=== PATIENT | female | born 1955 | race Caucasian/White ===

== ENCOUNTER 2024-01-16 13:10 | Outpatient (OUT) | payer MEDICARE, SELFPAY ==
--- NOTE | 2024-01-16 13:13 | MM_ITS ---
Patient Name: JESSICA WONG MR#: [id number] : 1955 Exam Date: 01/16/2024 Ordering Doctor: DR LANRE BANKS . RADIOLOGY REPORT PROCEDURE: MM TOMOSYNTHESIS SCREENING BI COMPARISON: MG MAMM SCREEN 3D MAINOR CAD, 12/07/2022. MG MAMM SCREEN 3D MAINOR CAD, 10/27/2021. MG MAMM SCREEN MAINOR W CAD, 06/29/2020. MG MAMM MAINOR SCRN W CAD DIG, 09/09/2013. INDICATIONS: Screening Calculator Name NCI Breast Cancer Risk Assessment Tool 5 Year Breast Cancer Risk 1.50% Lifetime Breast Cancer Risk 5.20% Personal Breast Cancer No Personal Ovarian Cancer No Treatments None Family Cancers Mother with bladder cancer at age 72. LOCATION: [facility] BREAST COMPOSITION: There are scattered areas of fibroglandular density. FINDINGS: DIAGNOSTIC CATEGORY 2--BENIGN FINDING: RIGHT BREAST: No significant suspicious finding. No significant change has occurred. LEFT BREAST: No significant suspicious finding. Stable, chronic small lymph node within the axillary tail. No significant change has occurred. RECOMMENDATIONS: ROUTINE MAMMOGRAM AND CLINICAL EVALUATION IN 12 MONTHS. PLEASE NOTE: A NORMAL MAMMOGRAM DOES NOT EXCLUDE THE POSSIBILITY OF BREAST CANCER. A CLINICALLY SUSPICIOUS PALPABLE LUMP SHOULD BE BIOPSIED. Dictated by: Bay Milner M.D. on 01/16/2024 at 14:47 Approved by: Bay Milner M.D. on 01/16/2024 at 14:48
== END 2024-01-16 13:11 | disposition home or self-care (01) ==
LOC: MAMMO 13:10
PROVIDERS: PCP Family Medicine; Visit Provider Family Medicine
DX: Z12.31 Encounter for screening mammogram for malignant neoplasm of breast (principal); Z80.52 Family history of malignant neoplasm of bladder
CPT/HCPCS: 77063; 77067

== ENCOUNTER 2025-03-17 09:36 | Outpatient (OUT) | payer MEDICARE, SELFPAY ==
--- NOTE | 2025-03-17 09:42 | MM_ITS ---
Patient Name: JESSICA WONG MR#: [id number] : 1955 Exam Date: 03/17/2025 Ordering Doctor: DR LANRE BANKS . RADIOLOGY REPORT PROCEDURE: MM TOMOSYNTHESIS SCREENING BI COMPARISON: MM TOMOSYNTHESIS SCREENING BI, 01/16/2024. MG MAMM SCREEN 3D MAINOR CAD, 12/07/2022. MG MAMM SCREEN 3D MAINOR CAD, 10/27/2021. MG MAMM MAINOR SCRN W CAD DIG, 09/09/2013. INDICATIONS: Screening mammogram Calculator Name NCI Breast Cancer Risk Assessment Tool 5 Year Breast Cancer Risk 1.50% Lifetime Breast Cancer Risk 5.00% Personal Breast Cancer No Personal Ovarian Cancer No Treatments None Family Cancers Mother with bladder cancer at age 72. LOCATION: [facility] BREAST COMPOSITION: There are scattered areas of fibroglandular density. FINDINGS: DIAGNOSTIC CATEGORY 1--NEGATIVE. RIGHT BREAST: No significant suspicious finding. LEFT BREAST: No significant suspicious finding. RECOMMENDATIONS: ROUTINE MAMMOGRAM AND CLINICAL EVALUATION IN 12 MONTHS. PLEASE NOTE: A NORMAL MAMMOGRAM DOES NOT EXCLUDE THE POSSIBILITY OF BREAST CANCER. A CLINICALLY SUSPICIOUS PALPABLE LUMP SHOULD BE BIOPSIED. Dictated by: Farzad Noble MD on 03/17/2025 at 12:08 Approved by: Farzad Noble MD on 03/17/2025 at 12:16
--- OUTSIDE RECORDS SUMMARY | 2025-03-17 09:58 | XMS_ITS | CCD ---
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 Name Role Phone DARREN ., DR DE DIOS Admitting Unavailable DARREN ., DR DE DIOS Attending Unavailable DARREN ., DR DE DIOS Primary Care Unavailable DARREN ., DR DE DIOS Consulting Unavailable HARDEEP, DR BAY Barrientos Consulting Unavailable Aram Banks MD Primary Care Provider Aram Banks MD Unavailable [phone] Aram Banks MD Primary Care Provider [phone] Aram Banks MD Primary Care Provider ARAM BANKS Attending Unavailable ARAM BANKS Attending Unavailable Medications Current Medications Medication Drug Class(es) Dates Sig (Normalized) Sig (Original) [id number] 200 actuat albuterol 0.09 mg/actuat metered dose inhaler (15 sources) beta2-Adrenergic Agonist Start: 02-04-2025 End: 08-31-2025 take 2 puff(s) by inhalation every four hours for wheezing albuterol HFA 90 mcg/act inhaler Indications: Mild intermittent asthma with acute exacerbation (HCC) Inhale 2 puffs every 4 (four) hours if needed for wheezing 54 g 1 03/04/2025 08/31/2025 Active Start: 01-23-2024 End: 07-21-2024 take 2 puff(s) by inhalation every four hours for wheezing albuterol HFA 90 mcg/act inhaler Indications: Mild intermittent asthma with acute exacerbation (HCC) Inhale 2 puffs every 4 (four) hours if needed for wheezing 54 g 1 01/23/2024 Active 168 hr estradiol 0.17166 mg/hr transdermal system (15 sources) Estrogen Start: 05-06-2024 End: 02-03-2026 estradiol (Climara) 0.0375 MG/24HR Indications: Post menopausal syndrome Place 1 patch on the skin 1 (one) time per week 12 patch 3 03/04/2025 02/03/2026 Active Start: 04-18-2023 End: 01-01-2024 estradiol (Climara) 0.0375 M G/24HR Indications: Post menopausal syndrome Place 1 patch on the skin 1 (one) time per week 12 patch 0 10/03/2023 01/01/2024 Active levothyroxine sodium 0.075 mg oral tablet (19 sources) l-Thyroxine Start: 03-04-2025 End: 06-02-2025 take 0.5 tablet by mouth twice daily before mealtime levothyroxine (Synthroid, Levoxyl) 75 MCG tablet Indications: Postsurgical hypothyroidism Take 0.5 tablets (37.5 mcg) by mouth 2 (two) times a day before meals 90 tablet 03/04/2025 06/02/2025 Active Start: 05-24-2023 End: 05-06-2025 take 1 tablet by mouth before mealtime levothyroxine (Synthroid, Levoxyl) 112 MCG tablet Indications: Postsurgical hypothyroidism Take 1 tablet (112 mcg) by mouth in the morning. Take before meals. 90 tablet 3 05/06/2024 03/04/2025 Discontinued (Reorder) liothyronine sodium 0.005 mg oral tablet (5 sources) l-Triiodothyronine Start: 03-04-2025 liothyronine (Cytomel) 5 MCG tablet Indications: Euthyroid sick syndrome Take 1.5 tablet in AM and 1.5 tablet in PM on an empty stomach. CARLOS; Sigma or Greenstone brands only 270 tablet 03/04/2025 Active loratadine 10 mg oral tablet (17 sources) take 1 tablet by mouth once daily loratadine (Claritin) 10 MG tablet Take 10 mg by mouth 1 (one) time each day at the same time. Active rosuvastatin calcium 5 mg oral tablet (17 sources) HMG-CoA Reductase Inhibitor Start: 02-04-2025 End: 04-03-2025 take 1 tablet by mouth once daily rosuvastatin (Crestor) 5 MG tablet Indications: Mixed hyperlipidemia Take 1 tablet (5 mg) by mouth Daily 30 tablet 03/04/2025 04/03/2025 Active Start: 01-10-2024 End: 01-09-2025 take 1 tablet by mouth once daily rosuvastatin (Crestor) 5 MG tablet Indications: Mixed hyperlipidemia Take 1 tablet (5 mg) by mouth Daily 90 tablet 3 01/10/2024 Active Start: 07-10-2023 End: 10-08-2023 take 1 tablet by mouth in the morning rosuvastatin (Crestor) 5 MG tablet Indications: Mixed hyperlipidemia (CMS/HCC) Take 1 tablet (5 mg) by mouth in the morning. 90 tablet 1 07/10/2023 10/08/2023 Active Spacer/Aero-Holding Chambers (BreatheRite Mike Spacer Adult) misc (15 sources) Start: 01-10-2024 Spacer/Aero-Ho lding Chambers (BreatheRite Mike Spacer Adult) [facility] Indications: Mild intermittent asthma with acute exacerbation (HCC) 2 puffs 4 (four) times a day as needed (sob and cough) 1 each 01/10/2024 Active Start: 01-10-2024 Spacer/Aero-Ho lding Chambers (BreatheRite Mike Spacer Adult) [facility] Indications: Mild intermittent asthma with acute exacerbation (CMS/HCC) 2 puffs 4 (four) times a day as needed (sob and cough) 1 each 01/10/2024 Active Problems Active Problems Problem Classification Problem Date Documented Date Episodic/Chronic Asthma (20 sources) Mild intermittent asthma; Translations: [Mild intermittent asthma with (acute) exacerbation] Onset: 01-10-2024 01-10-2024 Chronic Complications of surgical procedures or medical care (20 sources) Postoperative hypothyroidism; Translations: [Postprocedural hypothyroidism] Onset: 02-01-2023 02-01-2023 Chronic Disorders of lipid metabolism (20 sources) Mixed hyperlipidemia; Translations: [Mixed hyperlipidemia] Onset: 02-01-2023 02-01-2023 Chronic Diverticulosis and diverticulitis (17 sources) Diverticulosis of sigmoid colon; Translations: [Diverticulosis of large intestine without perforation or abscess without bleeding] Onset: 02-01-2023 02-01-2023 Chronic Inflammation; infection of eye (except that caused by tuberculosis or sexually transmitteddisease) (17 sources) Chronic allergic conjunctivitis; Translations: [Other chronic allergic conjunctivitis] Onset: 02-01-2023 02-01-2023 Chronic Malaise and fatigue (20 sources) Chronic fatigue syndrome; Translations: [Chronic fatigue syndrome] Onset: 02-01-2023 Resolved: 02-24-2025 02-01-2023 Chronic Menopausal disorders (20 sources) Disorder associated with menstruation AND/OR menopause; Translations: [Menopausal and female climacteric states] Onset: 02-01-2023 10-03-2023 Chronic Osteoarthritis (17 sources) Degenerative joint disease involving multiple joints; Translations: [Polyosteoarthritis, unspecified] Onset: 02-01-2023 02-01-2023 Chronic Other acquired deformities (17 sources) Kyphoscoliosis deformity of spine; Translations: [Scoliosis, unspecified] Onset: 02-01-2023 02-01-2023 Chronic Other aftercare (3 sources) Patient encounter status; Translations: [Encounter for therapeutic drug level monitoring] 01-30-2025 Episodic Other nutritional; endocrine; and metabolic disorders (20 sources) Obesity caused by energy imbalance; Translations: [Other obesity due to excess calories] Onset: 02-01-2023 02-01-2023 Chronic Other screening for suspected conditions (not mental disorders or infectious disease) (11 sources) Encounter for screening mammogram for malignant neoplasm of breast; Translations: [Patient encounter status] Onset: 12-07-2022 Episodic Other upper respiratory disease (17 sources) Allergic rhinitis; Translations: [Allergic rhinitis, unspecified] Onset: 02-01-2023 02-01-2023 Chronic Residual codes; unclassified (1 source) Family history of malignant neoplasm of bladder; Translations: [FAM HX MALIGNANT NEOPLASM BLADDER] Onset: 12-12-2022 Episodic Residual codes; unclassified (2 sources) Active advance directive (copy within chart) ; Translations: [Other specified health status] 03-05-2025 Episodic Residual codes; unclassified (2 sources) Menopause present; Translations: [Asymptomatic menopausal state] 03-05-2025 Episodic Thyroid disorders (7 sources) Sick-euthyroid syndrome; Translations: [Sick-euthyroid syndrome] Onset: 03-05-2025 03-04-2025 Episodic Past or Other Problems Problem Classification Problem Date Documented Da te Episodic/Chronic Heart valve disorders (17 sources) Heart murmur; Translations: [Cardiac murmur, unspecified] Onset: 02-01-2023 02-01-2023 Episodic Mood disorders (15 sources) Mood disorders Onset: 01-03-2024 01-10-2024 Results Test Name Value Interpretation Reference Range Facility No Panel Informationon 02-19 Performed at: - [address] [id number] Ribbon Weaver: Santy Valdez PhD, Phone: [phone] [facility] Potassiumon 02-19-2025 Potassium [Moles/Vol] 4.3 mmol/L 3.5 - 5.2 mmol/L [facility] T3on 02-19-2025 T3 [Mass/Vol] 87 ng/dL 71 - 180 ng/dL [facility]care T3, freeon 02-19-2025 Free T3 [Mass/Vol] 2.4 pg/mL 2.0 - 4.4 pg/mL [facility] T3, reverseon 02-19-2025 T3.reverse [Mass/Vol] 21 ng/dL 9.2 - 24.1 ng/dL [facility] Test(s) [id number] T3, Serum was developed and its performance characteristics determined by [facility]. It has not been cleared or approved by the Food and Drug Administration. Performed at: [address] [id number] Ribbon Weaver: Jaya May MD, Phone: [phone] [facility] T4, freeon 02-19-2025 Free T4 [Mass/Vol] 1.38 ng/dL 0.82 - 1. 77 ng/dL [facility] TSHon 02-19-2025 Interpretation and review of laboratory results Abnormal [facility] TSH Qn 7.54 m[IU]/L [facility] W Auto Differential pane l (Bld)on 02-13-2025 Basophils (Bld) [#/Vol] 0.1 10*3/uL [facility] Basophils/100 WBC (Bld) 1 % Not Estab. [facility] Eosinophils (Bld) [#/Vol] 0.1 10*3/uL [facility] Eosinophils/100 WBC (Bld) 2 % Not Estab. [facility] Erythrocyte distribution width (RBC) [Ratio] 12.1 % 11.7 - 15.4 % [facility] Hematocrit (Bld) [Volume fraction] 45.3 % 34.0 - 46.6 % [facility] Hem[facility] (Bld) [Mass/Vol] 14.9 g/dL 11.1 - 15.9 g/dL [facility] Immature granulocytes (Bld) [#/Vol] 0 10*3/uL [facility] Immature granulocytes/100 WBC (Bld) 0 % Not Estab. [facility] Lymphocytes (Bld) [#/Vol] 1.5 10*3/uL [facility] Lymphocytes/100 WBC (Bld) 23 % Not Estab. [facility] MCH (RBC) [Entitic mass] 31.9 pg 26.6 - 33.0 pg [facility] MCHC (RBC) [Mass/Vol] 32.9 g/dL 31.5 - 35.7 g/dL [facility] MCV (RBC) [Entitic vol] 97 fL 79 - 97 fL [facility] Monocytes (Bld) [#/Vol] 0.6 10*3/uL [facility] Monocytes/100 WBC (Bld) 9 % Not Estab. [facility] Neutrophils (Bld) [#/Vol] 4.3 10*3/uL [facility] Neutrophils/100 WBC (Bld) 65 % Not Estab. [facility] Platelets (Bld) [#/Vol] 377 10*3/uL [facility] RBC (Bld) [#/Vol] 4.67 10*6/uL [facility] WBC (Bld) [#/Vol] 6.6 10*3/uL [facility] pane osiel 02-13-2025 Albumin [Mass/Vol] 3.9 g/dL 3.9 - 4.9 g/dL [facility] ALP [Catalytic activity/Vol] 73 U/L [facility] ALT [Catalytic activity/Vol] 19 U/L [facility] AST [Catalytic activity/Vol] 25 U/L [facility] Bilirubin [Mass/Vol] 0.5 mg/dL 0.0 - 1 .2 mg/dL [facility] Calcium [Mass/Vol] 9.4 mg/dL 8.7 - 10. 3 mg/dL [facility] Chloride [Moles/Vol] 101 mmol/L 96 - 10 6 mmol/L [facility] CO2 [Moles/Vol] 20 mmol/L 20 - 29 mmol/L [facility] Creatinine [Mass/Vol] 0.74 mg/dL 0.57 - 1.00 mg/dL [facility] GFR/1.73 sq M.predicted among non-blacks MDRD (S/P/Bld) [Vol rate/Area] 88 mL/min/{1.73_m2} 59 - PINF mL/min/1.73 [facility] Globulin (S) [Mass/Vol] 3.4 g/dL 1.5 - 4.5 g/dL [facility] Glucose [Mass/Vol] 104 mg/dL High 70 - 99 mg/dL [facility] Potassium [Moles/Vol] 5.9 mmol/L High 3.5 - 5.2 mmol/L [facility] Protein [Mass/Vol] 7.3 g/dL 6.0 - 8.5 g/dL [facility] Sodium [Moles/Vol] 137 mmol/L 134 - 144 mmol/L [facility] Urea nitrogen [Mass/Vol] 16 mg/dL 8 - 27 mg/dL [facility] Urea nitrogen/Creatinine [Mass ratio] 22 mg/mg 12 - 28 [facility] Lipid 1996 panelon Cholesterol [Mass/Vol] 278 mg/dL High 100 - 199 mg/dL [facility] Cholesterol in HDL [Mass/Vol] 112 mg/dL 39 - PINF mg/dL [facility] Cholesterol in LDL [Mass/Vol] 151 mg/dL High 0 - 99 mg/dL [facility] Cholesterol in VLDL [Mass/Vol] 15 mg/dL 5 - 40 mg/dL [facility] Triglyceride [Mass/Vol] 90 mg/dL 0 - 149 mg/dL [facility] No Panel Informationon 02-13 Interpretation and review of laboratory results Abnormal [facility] Performed at: - [address] [id number] Ribbon Weaver: Santy Valdez PhD, Phone: [phone] [facility] Spec[facility] Status Reporton Clindamycin Disk diffusion (KB) [[facility]] Comment [facility] Comment on above: [employer] CMP14 D efault [employer] CMP14 Default A hand-written panel/profile was received from your office. In accordance with the [facility] Ambiguous Test Code Policy dated February 2003, we have completed your order by using the closest currently or formerly recognized AMA panel. We have assigned Comprehensive Metabolic Panel (14), Test Code #948782 to this request. If this is not the testing you wished to receive on this specimen, please contact the [facility] Client Inquiry/Technical Services Department to clarify the test order. We appreciate your business. [employer] Default [employer] Default A hand-written panel/profile was received from your office. In accordance with the [facility] Ambiguous Test Code Policy dated February 2003, we have completed your order by using the closest currently or formerly recognized AMA panel. We have assigned Lipid Panel, Test Code #[id number] to this request. If this is not the testing you wished to receive on this specimen, please [facility] to clarify the test order. We appreciate your business. T4, freeon 02-13-2025 Free T4 [Mass/Vol] 1.5 ng/dL 0.82 - 1. 77 ng/dL [facility] TSHon 02-13-2025 TSH Qn 7.34 m[IU]/L [facility] are Free T4 [Mass/Vol]on 024 Performing Organization Information Site ID: QPT Name: [facility] Address: [address] [place], [place] [id number] Director: Kevin Marie MD [facility] No Panel Informationon 04-20 Performing Organization Information Site ID: QPT Name: [facility] Address: [address] [place] [address] Director: Kevin Marie MD [facility] T3, freeon 04-20-2024 Free T3 [Mass/Vol] 3.3 pg/mL 2.3 - 4.2 pg/mL [facility] T4, freeon 04-20-2024 Free T4 [Mass/Vol] 1.6 ng/dL 0.8 - 1.8 ng/dL [facility] TSHon 04-20-2024 TSH Qn 0.75 m[IU]/L [facility] Health are MG MAMM SCREEN 3D MAINOR CADon 12-07-2022 MG MAMM SCREEN 3D MAINOR CAD Patient: MELANIE WONG Exam Date: 12/07/2022 : 1955 Gender:F Ordering : DR ARAM BANKS . Admission #: [id number] Family : Order #: [id number] CLICK HERE TO VIEW EXAM RADIOLOGY REPORT PROCEDURE: MAMMOGRAM SCREENING 3D BILATERAL CAD COMPARISON: MG MAMM SCREEN 3D MAINOR CAD, 10/27/2021. MG MAMM SCREEN MAINOR W CAD, 06/29/2020. MG MAMM SCREEN MAINOR W CAD, 06/27/2019. DIGITIZED_MAMMO, 03/02/2009. INDICATIONS: Screening mammography Calculator Name NCI Breast Cancer Risk Assessment Tool 5 Year Breast Cancer Risk 1.50% Lifetime Breast Cancer Risk 5.40% Personal Breast Cancer No Personal Ovarian Cancer No Treatments None Family Cancers Mother with bladder cancer at age 72. LOCATION: [facility] BREAST COMPOSITION: Scattered areas fibroglandular density. FINDINGS: DIAGNOSTIC CATEGORY 2--BENIGN FINDING: RIGHT BREAST: No significant suspicious finding. No significant change has occurred. LEFT BREAST: No significant suspicious finding. Stable small lymph node within the axillary tail. No significant change has occurred. RECOMMENDATIONS: ROUTINE MAMMOGRAM AND CLINICAL EVALUATION IN 12 MONTHS. PLEASE NOTE: A NORMAL MAMMOGRAM DOES NOT EXCLUDE THE POSSIBILITY OF BREAST CANCER. A CLINICALLY SUSPICIOUS PALPABLE LUMP SHOULD BE BIOPSIED. Dictated by: Bay Milner M.D. on 12/08/2022 at 12:59 Approved by: Bay Milner M.D. on 12/08/2022 at 13:05 Normal [facility] Comprehensive Metabolic Pane osiel 10-11-2021 Albumin [Mass/Vol] 4.3 g/dL Normal 3.6-5.1 [facility] [employer] Manager Comment on above: Performed By: #### L IPD, CMP #### [facility] [address] [place], [place] [id number] Albumin/Globulin [Mass ratio] 1.4 {ratio} Normal 1.0-2.5 [facility] [employer] Manager Comment on above: Performed By: #### L IPD, CMP #### [facility] [address] [place], [place] [id number] ALP [Catalytic activity/Vol] 73 U/L Normal 35-119 [facility] [employer] Manager Comment on above: Performed By: #### L IPD, CMP #### [facility] [address] [facility] [place] [id number] ALT [Catalytic activity/Vol] 14 U/L Normal 6-33 [facility] Comment on above: Result Comment: 07/21 Female reference range changed. Performed By: #### L IPD, CMP #### [facility] [address] [facility] [place] [id number] Anion gap [Moles/Vol] 18 mmol/L Normal 12-20 [facility] Comment on above: Result Comment: Effe ctive 08/26/2019 reference range changed. Performed By: #### L IPD, CMP #### [facility] [address] [place], [place] [id number] AST [Catalytic activity/Vol] 17 U/L Normal 9-34 [facility] Comment on above: Performed By: #### L IPD, CMP #### [facility] [address] [place], [place] [id number] Bilirubin [Mass/Vol] 0.57 mg/dL Normal 0.30-1.20 [facility] Comment on above: Performed By: #### L IPD, CMP #### [facility] [address] [place], [place] [id number] BUN/CREA 26 Ratio High 6-22 [facility] Comment on above: Performed By: #### L IPD, CMP #### [facility] [address] [place], [place] [id number] Calcium [Mass/Vol] 9.5 mg/dL Normal 8.6-10.2 [facility] Comment on above: Performed By: #### L IPD, CMP #### [facility] [address] [facility] [place] [id number] Chloride [Moles/Vol] 100 mmol/L Normal 98-107 [facility] Comment on above: Performed By: #### L IPD, CMP #### [facility] [address] [facility] [place] [id number] CO2 [Moles/Vol] 24 mmol/L Normal 20-31 [facility] Comment on above: Performed By: #### L IPD, CMP #### [facility] [address] [place], [place] [id number] Creatinine [Mass/Vol] 0.6 mg/dL Normal 0.6-1.4 [facility] [employer] Manager Comment on above: Performed By: #### L IPD, CMP #### [facility] [address] [place], [place] [id number] eGFRAA 134 mL/min/1.73m2 Normal >60 [facility] [employer] Manager Comment on above: Performed By: #### L IPD, CMP #### [facility] [address] [place], [place] [id number] eGFRNAA 111 mL/min/1.73m2 Normal >60 [facility] [employer] Manager Comment on above: Performed By: #### L IPD, CMP #### [facility] [address] [place], [place] [id number] Globulin (S) [Mass/Vol] 3.0 g/dL Normal 1.9-3.7 [facility] [employer] Manager Comment on above: Performed By: #### L IPD, CMP #### [facility] [address] [place], [place] [id number] Glucose [Mass/Vol] 103 mg/dL High 65-99 [facility] [employer] Manager Comment on above: Result Comment: For FASTING Glucose --- ADA reference ranges: Normal 65-99 mg/dl Prediabetes 100-125 Diabetes >/= 126 Performed By: #### L IPD, CMP #### [facility] [address] [place], [place] [id number] Potassium [Moles/Vol] 4.9 mmol/L Normal 3.5-5.5 [facility] [employer] Manager Comment on above: Performed By: #### L IPD, CMP #### [facility] [address] [place], [place] [id number] Protein [Mass/Vol] 7.3 g/dL Normal 6.1-8.1 [facility] [employer] Manager Comment on above: Performed By: #### L IPD, CMP #### [facility] [address] [place], [place] [id number] Sodium [Moles/Vol] 137 mmol/L Normal 135-146 [facility] [employer] Manager Comment on above: Performed By: #### L IPD, CMP #### [facility] [address] [place], [place] [id number] Urea nitrogen [Mass/Vol] 14 mg/dL Normal 7-25 [facility] [employer] Manager Comment on above: Performed By: #### L IPD, CMP #### [facility] [address] [place], [place] [id number] Lipid Panelon 10-11-2021 Cholesterol [Mass/Vol] 287 mg/dL High 125-200 [facility] [employer] Manager Comment on above: Result Comment: Low risk < 200mg/dL Borderline risk 201-239 mg/dl High risk > or equal to 240 Performed By: #### L IPD, CMP #### [facility] [address] [place], [place] [id number] Cholesterol in HDL [Mass/Vol] 82 mg/dL Normal >40 [facility] [employer] Manager Comment on above: Result Comment: High Cardiovascular Risk HDL <40 mg/dL Low Cardiovascular Risk HDL > or equal to 60 mg/dl Performed By: #### L IPD, CMP #### [facility] [address] [place], [place] [id number] Cholesterol in LDL [Mass/Vol] 188 mg/dL Normal [facility] Specialist Comment on above: Result Comment: LDL ATP III CLASSIFICATION LDL less than 100 mg/dl Optimal LDL 100-129 mg/dl Near or above optimal LDL 130-159 Borderline high LDL 160-189 High LDL greater than 189 mg/dl Very High Performed By: #### L IPD, CMP #### [facility] [address] [place], [place] [id number] Cholesterol in VLDL [Mass/Vol] 17 mg/dL Normal [facility] Specialist Comment on above: Performed By: #### L IPD, CMP #### [facility] [address] [place], [place] [id number] Cholesterol.total/Ch olesterol in HDL [Mass ratio] 4 {ratio} Normal [facility] Specialist Comment on above: Performed By: #### L IPD, CMP #### [facility] [address] [place], [place] [id number] Triglyceride [Mass/Vol] 84 mg/dL Normal 30-150 [facility] [employer] Manager Comment on above: Result Comment: TRIG ATPIII CLASSIFICATIONS TRIG less than 150 mg/dl Normal TRIG 150-199 mg/dl Borderline High TRIG 200-500 mg/dl High TRIG greather than 500 mg/dl Very High Performed By: #### L IPD, CMP #### [facility] [address] [place], [place] [id number] Vital Signs Date Time Vital Sign Value Performing Clinician Radha salgado 03-11-2025 10:28-0400 Body height 157.5 cm Aram Banks MD Work Phone: [facility] 03-11-2025 10:28-0400 Body mass index (BMI) [Ratio] 33.84 kg/m2 Aram Banks MD Work Phone: [facility] 03-11-2025 10:28-0400 Body weight 83.92 kg Aram Banks MD Work Phone: [facility] 03-11-2025 10:28-0400 Diastolic blood pressure 76 mm[Hg] Aram Banks MD Work Phone: [facility] 03-11-2025 10:28-0400 Heart rate 79 /min Aram Banks MD Work Phone: [facility] 03-11-2025 10:28-0400 SaO2% (BldA) [Mass fraction] 98 % Aram Banks MD Work Phone: [facility] 03-11-2025 10:28-0400 Systolic blood pressure 126 mm[Hg] Aram Banks MD Work Phone: [facility] 03-04-2025 11:13-0400 Body height 157.5 cm Aram Banks MD Work Phone: [facility] 03-04-2025 11:13-0400 Body mass index (BMI) [Ratio] 33.84 kg/m2 Aram Banks MD Work Phone: [facility] 03-04-2025 11:13-0400 Body weight 83.92 kg Aram Banks MD Work Phone: [facility] Healthcare Encounters Encounter Date Encounter Type Care Provider Facility Start: 03-11-2025 End: 03-11-2025 Bamboo flowsheet Aram Banks MD Work Phone: [facility] Start: 03-11-2025 End: 03-11-2025 Bamboo flowssharyn Banks MD Work Phone: [facility] Start: 03-11-2025 End: 03-11-2025 Patient encounter procedure Aram Banks MD Work Phone: [facility] Comment on above: Encounter for Medica re annual wellness exam (Primary Dx); Advance directive in chart; Encounter for screening for other disorder; Screening mammogram for breast cancer; Screening for alcohol problem; Screening for osteoporosis; Menopause; History of hysterectomy; Non morbid obesity due to excess calories; Mild intermittent asthma without complication (HCC) Start: 03-11-2025 End: 03-11-2025 ambulatory ARAM BANKS Not Available Start: 03-04-2025 End: 03-04-2025 Bamboo flowssharyn Banks MD Work Phone: [facility] Start: 03-04-2025 End: 03-04-2025 Bamboo flowssharyn Banks MD Work Phone: [facility] Start: 03-04-2025 End: 03-04-2025 Office outpatient visit 40 minutes Aram Banks MD Work Phone: [facility] Comment on above: Euthyroid sick syndr ome (Primary Dx); Postsurgical hypothyroidism ; Chronic fatigue; Non morbid obesity due to excess calories; Mild intermittent asthma with acute exacerbation (HCC); Mixed hyperlipidemia ; Post menopausal syndrome Start: 03-04-2025 End: 03-04-2025 ambulatory ARAM BANKS Not Available Start: 03-03-2025 End: 03-03-2025 Refill Aram Banks MD Work Phone: [facility] Comment on above: Mixed hyperlipidemia Start: 02-14-2025 End: 02-19-2025 Orders Only Aram Banks MD Work Phone: [facility] Unsolicited Start: 02-12-2025 End: 02-13-2025 Orders Only Aram Banks MD Work Phone: [facility] Unsolicited Start: 01-31-2025 End: 02-02-2025 Refill Aram Bansk MD Work Phone: [facility] Comment on above: Mild intermittent as thma with acute exacerbation (HCC) Start: 01-30-2025 End: 02-13-2025 Telephone encounter Aram Banks MD Work Phone: [facility] Start: 07-17-2024 End: 07-22-2024 Refill Aram Banks MD Work Phone: [facility] Comment on above: Post menopausal synd [place] Start: 04-19-2024 End: 04-20-2024 External Result Encounter Aram Banks MD Work Phone: [facility] Unsolicited Start: 04-19-2024 End: 04-20-2024 External Result Encounter Aram Banks MD Work Phone: [facility] Unsolicited Start: 10-03-2023 Refill Aram de los santos MD Work Phone: [facility] Comment on above: Post menopausal synd [place] Start: 10-03-2023 Refill Aram de los santos MD Work Phone: [facility] Comment on above: Post menopausal synd [place] Start: 12-07-2022 End: 12-08-[address] ARAM BANKS . Facility: Procedures Date Procedure Procedure Detail Performing Clinician Start: 02-14-2025 Potassium serum plasma/whole blood Aram Banks MD Work Phone: Start: 02-12-2025 Complete blood count with white cell differential, automated Aram Banks MD Work Phone: Start: 02-12-2025 Comprehensive metabolic panel Aram Banks MD Work Phone: Start: 02-12-2025 Lipid panel Aram Banks MD Work Phone: Start: 02-12-2025 SPECIMEN STATUS REPORT Aram Banks MD Work Phone: Start: 04-19-2024 End: 04-19-2024 Assay of thyroid stimulating hormone tsh Aram Banks MD Work Phone: Start: 01-16-2024 Mammography Aram Banks MD Work Phone: Start: 02-01-2023 H/O: bilateral oophorectomy H/O bilateral oophorectomy Aram Banks MD Work Phone: Start: 02-01-2023 H/O: hysterectomy History of hysterectomy Aram Sauer Work Phone: Start: 12-07-2022 Mammography Aram Banks MD Work Phone: Start: 07-10-2019 Colonoscopy Aram Banks MD Work Phone: H/O: hysterectomy History of hysterectomy Aram Banks MD Work Phone: Plan of Treatment Date Care Activity Detail Author Start: 07-10-2029 Screening for malign ant neoplasm of colon [facility] Start: 03-11-2026 Medicare Annual Well ness (AWV) Medicare Annual Wellness (AWV) [facility] Start: 03-11-2026 Pneumococcal Vaccine : 65+ Years (1 of 2 - PCV) Pneumococcal Vaccine: 65+ Years (1 of 2 - PCV) [facility] Comment on above: Postponed from 07/07 (Patient Refused) Start: 06-10-2025 End: 06-10-2025 Patient encounter procedure 06/10/2025 10:00 AM EDT Office Visit [facility] [address] [place] [address] Aram Banks MD [address] [place] [address] (Fax) [facility] Start: 05-13-2025 End: 03-04-2026 T3, reverse T3, reverse Lab Routine Chronic fatigue Euthyroid sick syndrome Expected: 05/13/2025, Expires: 03/04/2026 [facility] Comment on above: Expected: 05/13/2025 , Expires: 03/04/2026 Start: 05-13-2025 End: 03-04-2026 Thyrotropin [Units/volume] in Serum or Plasma TSH Lab Routine Postsurgical hypothyroidism Chronic fatigue Expected: 05/13/2025, Expires: 03/04/2026 [facility] Comment on above: Expected: 05/13/2025 , Expires: 03/04/2026 Start: 05-13-2025 End: 03-04-2026 Thyroxine (T4) free [Mass/volume] in Serum or Plasma T4, free Lab Routine Postsurgical hypothyroidism Chronic fatigue Expected: 05/13/2025, Expires: 03/04/2026 [facility] Comment on above: Expected: 05/13/2025 , Expires: 03/04/2026 Start: 05-13-2025 End: 03-04-2026 Triiodothyronine (T3) [Mass/volume] in Serum or Plasma T3 Lab Routine Chronic fatigue Euthyroid sick syndrome Expected: 05/13/2025, Expires: 03/04/2026 [facility] Work Phone: Comment on above: Expected: 05/13/2025 , Expires: 03/04/2026 Start: 05-13-2025 End: 03-04-2026 Triiodothyronine (T3) Free [Mass/volume] in Serum or Plasma T3, free Lab Routine Chronic fatigue Euthyroid sick syndrome Expected: 05/13/2025, Expires: 03/04/2026 [facility] Comment on above: Expected: 05/13/2025 , Expires: 03/04/2026 Start: 04-21-2025 Influenza vaccination [facility] Start: 03-11-2025 End: 05-12-2026 DBT Breast - bilateral screening Bilateral screening mammogram with tomosynthesis Imaging Routine Screening mammogram for breast cancer Expected: 03/11/2025 (Approximate), Expires: 05/12/2026 [facility] Work Phone: Comment on above: Expected: 03/11/2025 (Approximate), Expires: 05/12/2026 Start: 03-11-2025 End: 03-11-2026 DXA Skeletal system Views for bone density DEXA bone density Imaging Routine Screening for osteoporosis Menopause Expected: 03/11/2025 (Approximate), Expires: 03/11/2026 [facility] Comment on above: Expected: 03/11/2025 (Approximate), Expires: 03/11/2026 Start: 03-11-2025 End: 03-11-2025 Patient encounter procedure [facility] Comment on above: Encounter for Medica re annual wellness exam; Advance directive in chart; Encounter for screening for other disorder; Screening for alcohol problem; Screening mammogram, encounter for; Screening for osteoporosis; Menopause; History of hysterectomy; H/O bilateral oophorectomy; Non morbid obesity due to excess calories Start: 03-04-2025 End: 03-04-2025 Patient encounter procedure [facility] Comment on above: Postsurgical hypothy roidism ; Chronic fatigue; Non morbid obesity due to excess calories Start: 01-30-2025 End: 01-30-2026 CBC W Auto Differential panel - Blood CBC and differential Lab Routine Screening for diabetes mellitus Medication monitoring encounter Chronic fatigue syndrome Expected: 01/30/2025 (Approximate), Expires: 01/30/2026 [facility] Comment on above: Expected: 01/30/2025 (Approximate), Expires: 01/30/2026 Start: 01-30-2025 End: 01-30-2026 Comprehensive metabolic 2000 panel - Serum or Plasma Comprehensive metabolic panel Lab Routine Screening for diabetes mellitus Medication monitoring encounter Chronic fatigue syndrome Expected: 01/30/2025 (Approximate), Expires: 01/30/2026 [facility] Work Phone: Comment on above: Expected: 01/30/2025 (Approximate), Expires: 01/30/2026 Start: 01-30-2025 End: 01-30-2026 Lipid 1996 panel - Serum or Plasma Lipid panel Lab Routine Mixed hyperlipidemia Expected: 01/30/2025 (Approximate), Expires: 01/30/2026 [facility] Comment on above: Expected: 01/30/2025 (Approximate), Expires: 01/30/2026 Start: 01-30-2025 End: 01-30-2026 Thyrotropin [Units/volume] in Serum or Plasma TSH Lab Routine Postsurgical hypothyroidism Expected: 01/30/2025 (Approximate), Expires: 01/30/2026 [facility] Comment on above: Expected: 01/30/2025 (Approximate), Expires: 01/30/2026 Start: 01-30-2025 End: 01-30-2026 Thyroxine (T4) free [Mass/volume] in Serum or Plasma T4, free Lab Routine Postsurgical hypothyroidism Expected: 01/30/2025 (Approximate), Expires: 01/30/2026 [facility] Comment on above: Expected: 01/30/2025 (Approximate), Expires: 01/30/2026 Start: 01-15-2025 Screening for malign ant neoplasm of breast Mammogram [facility] Start: 01-09-2025 Medicare Annual Well ness (AWV) Medicare Annual Wellness (AWV) [facility] Start: 01-09-2025 Pneumococcal Vaccine : 65+ Years (1 of 2 - PCV) Pneumococcal Vaccine: 65+ Years (1 of 2 - PCV) [facility] Comment on above: Postponed from 07/07 (Patient Refused) Start: 05-06-2024 End: 05-06-2024 Patient encounter procedure 05/06/2024 8:30 AM EDT Office Visit [facility] [address] [address] Aram Banks MD [address] [place] [address] [facility] Start: 04-21-2024 Influenza vaccination Influenza Vacc ine (#1) [facility] Start: 12-08-2023 Screening for malign ant neoplasm of breast Mammogram [facility] Start: 11-22-2023 Medicare Annual Well ness (AWV) Medicare Annual Wellness (AWV) [facility] Start: 04-21-2023 Influenza vaccination Influenza Vacc ine (#1) [facility] Start: 2021 Pneumococcal Vaccine : 65+ Years (1 - PCV) Pneumococcal Vaccine: 65+ Years (1 - PCV) [facility] Start: 1975 Pneumococcal Vaccine : 65+ Years (1 of 2 - PCV) Pneumococcal Vaccine: 65+ Years (1 of 2 - PCV) [facility] Start: 1955 Screening for malign ant neoplasm of colon [facility] Immunizations Immunization Date Immunization Notes Care Provider Jasper alexander 06-01-2023 Influenza, High-dose Seasonal, Quadrivalent, Preservative Free Aram Banks MD Work Phone: [facility] 06-01-2023 influenza virus vacc ine, unspecified formulation Aram Banks MD Work Phone: [facility] 05-23-2022 Influenza, High-dose Seasonal, Quadrivalent, Preservative Free Aram Banks MD Work Phone: [facility] 05-23-2022 Moderna SARS-CoV-2 50mcg/0.5mL Booster Aram Banks MD Work Phone: [facility] 05-23-2022 influenza virus vacc ine, unspecified formulation Aram Banks MD Work Phone: [facility] 06-03-2021 influenza, injectabl e, quadrivalent, preservative free Aram Banks MD Work Phone: [facility] 05-13-2020 Influenza, injectabl e, Madin Cannon [employer] Canine Kidney, quadrivalent with preservative Aram Banks MD Work Phone: [facility] 05-31-2019 influenza, high dose seasonal, preservative-free Aram Banks MD Work Phone: [facility] 05-21-2018 influenza, injectabl e, quadrivalent, preservative free Aram Banks MD Work Phone: [facility] 05-31-2017 influenza, injectabl e, quadrivalent, preservative free Aram Banks MD Work Phone: [facility] 06-09-2016 influenza, injectabl e, quadrivalent, preservative free Aram Banks MD Work Phone: [facility] 06-09-2015 influenza, seasonal, injectable Aram Banks MD Work Phone: [facility] 05-25-2015 influenza, injectabl e, quadrivalent, preservative free Aram Banks MD Work Phone: [facility] 09-09-2013 tetanus and diphther ia toxoids, adsorbed, preservative free, for adult use (5 Lf of tetanus toxoid and 2 Lf of diphtheria toxoid) Aram Banks MD Work Phone: [facility] 06-09-2013 seasonal influenza, intradermal, preservative free Aram Banks MD Work Phone: [facility] Payers Date Payer Category Payer Medicare [id number] 2021 Medicare (Managed Care) [employer] [id number] 1958 Medicare [id number] 1955 Unknown [id number] 1955 Unknown [id number] 1955 Unknown [id number] Social History Date Type Detail Facility Start: 05-23-2023 End: 01-10-2024 Tobacco smoking status NHIS Never smoked tobacco [facility] Start: 05-24-2023 Alcohol intake Ex-drinker (finding) [facility] Start: 05-22-2023 End: 02-26-[address] [facility] Start: 05-22-2023 End: 02-26-2025 Humiliation, Afraid, Rape, and Kick questionnaire [HARK] [facility] Within the last year , have you been afraid of your partner or ex-partner? No [facility] Do you belong to any clubs or organizations such as mormon groups, unions, fraternal or athletic groups, or school groups? Yes [facility] Are you now , , , , never or living with a partner? [facility] How often to you hav e a drink containing alcohol? Never [facility] How many standard dr inks containing alcohol do you have on a typical day? Patient does not drink [facility] Do you feel stress - tense, restless, nervous, or anxious, or unable to sleep at night because your mind is troubled all the time - these days [OSQ] Not at all [facility] (I/We) worried wheth er (my/our) food would run out before (I/we) got money to buy more. Never true [facility] Start: 05-23-2023 Alcohol Comment Caffeine intak e: 1-2 cups per day [facility] Start: 1955 Sex Assigned At Female [facility] Start: 04-18-2023 Gender identity Identifies as female gender (finding) [facility] Start: 01-10-2024 Tobacco use and exposure Smoke less tobacco non-user [facility] Start: 01-10-2024 End: 03-11-2025 Alcoholic beverage intake Lifetime non-drinker (finding) [facility] Functional Status Date Assessment Result Facility 03-04-2025 Patient Health Quest ionnaire 2 item (PHQ-2) [Reported] [facility] Clinical Notes 01-30-2025 to 03-11-2025 Aram Banks MD - 03/11/2025 10:30 AM Del Banks MD - 03/04/2025 11:30 AM EDTTelephone Encounter - Aram Banks MD - 01/30/2025 5:13 PM EDT Note Date & Type Note Facility 03-11-2025 History of Presen t illness Narrative Images from the original note were not included. Melanie Wong is a 69 y.o. female presents with chief complaint of Annual Exam HPI: History of Present Illness I have reviewed and reconciled the history and medication list with the patient today. CURRENT PCP/CARE TEAM: Patient Care Team: Aram Banks MD as PCP - General (Family Medicine) Over the past 2 weeks, how often have you been bothered by any of the following problems? Little interest or pleasure in doing things: Not at all Feeling down, depressed, or hopeless: Not at all Patient Health Questionnaire-2 Score: 0 Flowers Fall Risk History of Falling, Immediate or Within 3 Months: No Secondary Diagnosis: No Intravenous Therapy/Heparin Lock: No Health Risk Assessment Form Do you need help eating, bathing, using the toilet, dressing, or getting around your home?: No Can you prepare your own meals?: Yes Can you do your own housework without help?: Yes Can you shop for groceries or clothes without help?: Yes Do you exercise for about 20 minutes 3 or more days a week?: Yes How confident are you that you can control and manage most of your health problems?: Very confident Can you mange your money, credit cards and accounts, pay bills and taxes?: Yes Vision Screening: Yes, 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 Hearing Screening: Not done Cognitive Screening Self Assessment: No concerns rasied by family members, friends, or caretakers Three Word Registration: Banana, [place], Chair Clock Drawing: Normal Clock - 2 HISTORIES: PAST MEDICAL HISTORY: Past Medical History: Diagnosis Date Abnormal mammogram Allergic rhinitis cause unspecified Heart murmur History of hyperthyroidism prior to surgery Other chronic allergic conjunctivitis Postsurgical hypothyroidism Symptomatic states associated with artificial menopause Uterine fibroid SURGICAL HISTORY: Past Surgical History: Procedure Laterality Date COLONOSCOPY 2009 COLONOSCOPY 2019 THYROIDECTOMY 1978 TOTAL ABDOMINAL HYSTERECTOMY W/ BILATERAL SALPINGOOPHORECTOMY SOCIAL HISTORY: Social History Tobacco Use Smoking status: Never Smokeless tobacco: Never Vaping Use Vaping status: Never Used Substance Use Topics Alcohol use: Never Comment: Caffeine intake: 1-2 cups per day Drug use: Never Depression: Not at risk (03/06/2025) PHQ-2 PHQ-2 Score: 0 FAMILY HISTORY: Family History Problem Relation Name Age of Onset Cancer Mother Sarah Stroke Father dafne Lung cancer Brother MEDICATIONS: Current Outpatient Medications Medication Instructions albuterol HFA 90 mcg/act inhaler 2 puffs, Inhalation, Every 4 hours PRN estradiol (Climara) 0.0375 MG/24HR 1 patch, Transdermal, Weekly levothyroxine (SYNTHROID, LEVOXYL) 37.5 mcg, Oral, 2 times daily before meals liothyronine (Cytomel) 5 MCG tablet Take 1.5 tablet in AM and 1.5 tablet in PM on an empty stomach. CARLOS; Sigma or [employer] brands only loratadine (CLARITIN) 10 mg, Every 24 hours rosuvastatin (CRESTOR) 5 mg, Oral, Daily Spacer/Aero-Holding Chambers (BreatheRite Mike Spacer Adult) misc 2 puffs, Does not apply, 4 times daily PRN ALLERGIES: No Known Allergies PHYSICAL EXAM: Visit Vitals BP 126/76 Pulse 79 Ht 5' 2 Wt 185 lb SpO2 98% BMI 33.84 kg/m OB Status Postmenopausal Smoking Status Never BSA 1.92 m BP Readings from Last 3 Encounters: 03/11/25 126/76 01/10/24 118/70 11/21/22 118/68 Wt Readings from Last 3 Encounters: 03/11/25 185 lb 03/04/25 185 lb 01/10/24 191 lb 8 oz Physical Exam The patient is pleasant and in no acute distress. The head is normocephalic and atraumatic. Both eyes appear grossly normal without obvious lid pathology or icterus. Both ears hearing is grossly intact. The neck is supple and trachea is midline. No masses are appreciated. The anterior cervical lymphatics demonstrates shoddy bilateral nontender lymphadenopathy. There is no supraclavicular lymphadenopathy. The heart is regular rate and rhythm without S3, S4. No murmur ( historically previously noted). The patient has normal respiratory pattern. The breath sounds are symmetrical without evidence of rhonchi or rales. No wheezing. The skin is warm and dry. The lower extremities have trace edema. Varicose veins bilateral Neurologic screening exam is nonfocal. The patient is alert. There is no overt gross evidence of cognitive impairment The patient has good eye contact and speech is clear. Appropriate affect. Results ASSESSMENT AND PLAN: Assessment/Plan 1. Encounter for Medicare annual wellness exam (Primary) The patient is here for their Annual Medicare Wellness visit. Demographics were updated. Self-assessment was completed and reviewed. Past medical, family, and social history were updated. The medication list updated and reviewed by the doctor. A list of other current medical providers is established and updated. Time was spent discussing health maintenance issues, ordering testing as appropriate, and a schedule was reviewed regarding recommended screening. We discussed safety issues and fall risk. Depression screening was completed and addressed as appropriate. Fall screening was completed and addressed. Cognitive function was assessed by direct observation, cognitive screening as indicated, and assessment of ability to perform ADL's. The BMI and discussed. Major risk factors for chronic disease including family history were discussed. An after visit summary is made available to the patient 2. Advance directive in chart No changes to advanced directives 3. Encounter for screening for other disorder Clinically insignificant depression screening 4. Screening mammogram for breast cancer - Bilateral screening mammogram with tomosynthesis; Future 5. Screening for alcohol problem Negative alcohol screening 6. Screening for osteoporosis - DEXA bone density; Future 7. Menopause - DEXA bone density; Future 8. History of hysterectomy Exclusionary diagnosis for the HEDIS measures for cervical cancer screening 9. Non morbid obesity due to excess calories Encourage increase lifestyle changes 10. Mild intermittent asthma without complication (HCC) Chronic problem, stable, overall doing well. Monitor longitudinally. Did review pneumococcal vaccination with her and she declined at this time. documented in this encounter [facility] 03-04-2025 History of Presen t illness Narrative Images from the original note were not included. Patient ID: Melanie Wong is a 69 y.o. female who presents for: Thyroid: Pt here today to review his/hers thyroid labs and any medication changes needed. Fatigue: Present, Unchanged, busy life Weight Gain: Absent Inability to lose weight: absent Hair Changes: absent Review Results: Patient is here in the office today to review recent labs or diagnostic imaging with Dr Jesse Banks per his request. Based on the results they will also review treatment options. Please see labs scanned. Review of Systems Constitutional: Positive for fatigue. Negative for appetite change. HENT: Negative for trouble swallowing and voice change. Cardiovascular: Negative for palpitations. Musculoskeletal: Negative for arthralgias and myalgias. Psychiatric/Behavioral: Negative for sleep disturbance. The patient is not nervous/anxious. Endocrine: Negative for cold intolerance and heat intolerance. Orders Only on 02/14/2025 Component Date Value Ref Range Status T4Free(Direct) 02/14/2025 1.38 0.82 - 1.77 ng/dL Final TSH 02/14/2025 7.540 (H) 0.450 - 4.500 uIU/mL Final T3 REVERSE, LC/MS/MS 02/14/2025 21.0 9.2 - 24.1 ng/dL Final Potassium 02/14/2025 4.3 3.5 - 5.2 mmol/L Final T3 Triiodothyronine 02/14/2025 87 71 - 180 ng/dL Final T3, FREE 02/14/2025 2.4 2.0 - 4.4 pg/mL Final Orders Only on 02/12/2025 Component Date Value Ref Range Status WBC 02/12/2025 6.6 3.4 - 10.8 x10E3/uL Final RBC 02/12/2025 4.67 3.77 - 5.28 x10E6/uL Final Hgb 02/12/2025 14.9 11.1 - 15.9 g/dL Final Hct 02/12/2025 45.3 34.0 - 46.6 % Final MCV 02/12/2025 97 79 - 97 fL Final MCH 02/12/2025 31.9 26.6 - 33.0 pg Final MCHC 02/12/2025 32.9 31.5 - 35.7 g/dL Final RDW 02/12/2025 12.1 11.7 - 15.4 % Final Platelets 02/12/2025 377 150 - 450 x10E3/uL Final Neutrophils 02/12/2025 65 Not Estab. % Final Lymphs 02/12/2025 23 Not Estab. % Final Monocytes 02/12/2025 9 Not Estab. % Final Eos 02/12/2025 2 Not Estab. % Final Basos 02/12/2025 1 Not Estab. % Final Neutrophils Abs 02/12/2025 4.3 1.4 - 7.0 x10E3/uL Final Lymphs Abs 02/12/2025 1.5 0.7 - 3.1 x10E3/uL Final MonocytesAbs 02/12/2025 0.6 0.1 - 0.9 x10E3/uL Final Eos Abs 02/12/2025 0.1 0.0 - 0.4 x10E3/uL Final Baso Abs 02/12/2025 0.1 0.0 - 0.2 x10E3/uL Final Immature Granulocytes 02/12/2025 0 Not Estab. % Final Immature Grans Abs 02/12/2025 0.0 0.0 - 0.1 x10E3/uL Final Glucose 02/12/2025 104 (H) 70 - 99 mg/dL Final BUN 02/12/2025 16 8 - 27 mg/dL Final Creat 02/12/2025 0.74 0.57 - 1.00 mg/dL Final EGFR 02/12/2025 88 >59 mL/min/1.73 Final BUN/Creat Ratio 02/12/2025 22 12 - 28 Final Sodium 02/12/2025 137 134 - 144 mmol/L Final Potassium 02/12/2025 5.9 (H) 3.5 - 5.2 mmol/L Final Chloride 02/12/2025 101 96 - 106 mmol/L Final Carbon Dioxide 02/12/2025 20 20 - 29 mmol/L Final Calcium 02/12/2025 9.4 8.7 - 10.3 mg/dL Final Protein Total 02/12/2025 7.3 6.0 - 8.5 g/dL Final Albumin 02/12/2025 3.9 3.9 - 4.9 g/dL Final Globulin Total 02/12/2025 3.4 1.5 - 4.5 g/dL Final Bili Total 02/12/2025 0.5 0.0 - 1.2 mg/dL Final Alk Phosphatase 02/12/2025 73 44 - 121 IU/L Final AST 02/12/2025 25 0 - 40 IU/L Final ALT 02/12/2025 19 0 - 32 IU/L Final Cholesterol, Total 02/12/2025 278 (H) 100 - 199 mg/dL Final Triglycerides 02/12/2025 90 0 - 149 mg/dL Final HDL Cholesterol 02/12/2025 112 >39 mg/dL Final VLDL Cholesterol Joey 02/12/2025 15 5 - 40 mg/dL Final LDL Chol Calc (NIH) 02/12/2025 151 (H) 0 - 99 mg/dL Final T4Free(Direct) 02/12/2025 1.50 0.82 - 1.77 ng/dL Final TSH 02/12/2025 7.340 (H) 0.450 - 4.500 uIU/mL Final SPECIMEN STATUS REPORT 02/12/2025 Comment Final Comment: [employer] CMP14 Default [employer] CMP14 Default A hand-written panel/profile was received from your office. In accordance with the [facility] Ambiguous Test Code Policy dated February 2003, we have completed your order by using the closest currently or formerly recognized AMA panel. We have assigned Comprehensive Metabolic Panel (14), Test Code #414439 to this request. If this is not the testing you wished to receive on this specimen, please contact the [employer] Client Inquiry/Technical Services Department to clarify the test order. We appreciate your business. [employer] Default [employer] Default A hand-written panel/profile was received from your office. In accordance with the [facility] Ambiguous Test Code Policy dated February 2003, we have completed your order by using the closest currently or formerly recognized AMA panel. We have assigned Lipid Panel, Test Code #146657 to this request. If this is not the testing you wished to receive on this specimen, plea se contact the [facility] Client Inquiry/Technical Services Department to clarify the test order. We appreciate your business. Calculated THY Ratio: 4.1 Objective The patient is pleasant and in no acute distress The patient has good eye contact and clear speech Visit Vitals Ht 5' 2 Wt 185 lb BMI 33.84 kg/m OB Status Postmenopausal Smoking Status Never BSA 1.92 m No Known Allergies Current Outpatient Medications on File Prior to Visit Medication Sig Dispense Refill albuterol HFA 90 mcg/act inhaler Inhale 2 puffs every 4 (four) hours if needed for wheezing 54 g 1 estradiol (Climara) 0.0375 MG/24HR Place 1 patch on the skin 1 (one) time per week 12 patch 3 levothyroxine (Synthroid, Levoxyl) 112 MCG tablet Take 1 tablet (112 mcg) by mouth in the morning. Take before meals. 90 tablet 3 loratadine (Claritin) 10 MG tablet Take 10 mg by mouth 1 (one) time each day at the same time. rosuvastatin (Crestor) 5 MG tablet Take 1 tablet (5 mg) by mouth Daily 30 tablet 0 Spacer/Aero-Holding Chambers (BreatheRite Mike Spacer Adult) misc 2 puffs 4 (four) times a day as needed (sob and cough) 1 each 0 No current facility-administered medications on file prior to visit. 1. Postsurgical hypothyroidism This is a complex chronic problem, unstable, not to goal; managment requires moderate decision making I reviewed diet and exercise with the patient. I discussed the patient's current psychosocial and physical condition and the stress impact upon them. I reviewed the multiple unique laboratories and explained the results to the patient. The patient has been re-educated concerning the above diagnoses and that the treatment for some of these may not be considered the standard of care, including TSH suppression when utilized. The patient has been re-educated and instructed concerning medication timing, diet, exercise, and stress reduction as appropriate. I reviewed the patient's current prescriptions and discussed the possibilities of medication renewals, adjustments, new medication start, or stop medication as appropriate The patient has been instructed to follow up and bring a diet and exercise log, and the importance of follow up and compliance. The patient was given a chance to ask questions today and all questions were answered. The patient is to contact us if any other questions arise or if any problems occur. - levothyroxine (Synthroid, Levoxyl) 75 MCG tablet; Take 0.5 tablets (37.5 mcg) by mouth 2 (two) times a day before meals Dispense: 90 tablet; Refill: 0 - T4, free; Future - TSH; Future - T4, free - TSH 2. Euthyroid sick syndrome (Primary) New, chronic problem. We had a long discussion concerning this and she is technically not euthyroid. It is obvious though that making her euthyroid would only worsen this. We discussed how treating euthyroid sick syndrome is considered an integrative medicine approach and not a traditional medicine approach. All her questions were answered. She would like to proceed with active treatment including liothyronine. A titration sheet was generated. Lifestyle changes were discussed. Stress management was discussed. In prescribing a new medication consideration of the following encompasses moderate decision making: the current prescriptions and supplements, the current allergies and medication intolerances, the current medical conditions, and potential drug interactions. Risks, benefits, and reason for starting their medication were discussed. The patient was given a chance to ask questions today and all questions were answered. The patient is to contact us if any other questions arise or if any problems occur with the adjustment in their medication. - liothyronine (Cytomel) 5 MCG tablet; Take 1.5 tablet in AM and 1.5 tablet in PM on an empty stomach. CARLOS; [employer] or [employer] brands only Dispense: 270 tablet; Refill: 0 - T3; Future - T3, reverse; Future - T3, free; Future - T3 - T3, reverse - T3, free 3. Chronic fatigue Chronic problem, unstable, complex in nature with moderate decision making. I discussed with the patient or their outside medical sales representative, their fatigue issues. We discussed how this is either not improved or not adequately addressed. We discussed how this is almost always a multifactorial problem. We discussed how we can frequently improve the symptoms, but may not be able to completely cure or resolve the issue. We discussed that the patient will need to continue to make lifestyle changes including diet, sleep, exercise, and stress management as appropriate. We further discussed how we will continue to search for refinements in their current treatments or evaluation for further disease processes and then support or treat them as appropriate. The patient was given a chance to ask questions and all questions were answered. - T3; Future - T3, reverse; Future - T3, free; Future - T4, free; Future - TSH; Future - T3 - T3, reverse - T3, free - T4, free - TSH 4. Non morbid obesity due to excess calories Lifestyle changes as above 5. Mild intermittent asthma with acute exacerbation (HCC) Chronic problem, stable, discussed that she will need to separate these into separate visits. - albuterol HFA 90 mcg/act inhaler; Inhale 2 puffs every 4 (four) hours if needed for wheezing Dispense: 54 g; Refill: 1 6. Mixed hyperlipidemia As noted above - rosuvastatin (Crestor) 5 MG tablet; Take 1 tablet (5 mg) by mouth Daily Dispense: 30 tablet; Refill: 0 7. Post menopausal syndrome As noted above - estradiol (Climara) 0.0375 MG/24HR; Place 1 patch on the skin 1 (one) time per week Dispense: 12 patch; Refill: 3 documented in this encounter [facility] 01-30-2025 Telephone encount er Note done [facility] 01-30-2025 Miscellaneous Notes Formattin g of this note might be different from the original. done She also needed Thyroid Labs ordered. Thank you. Orders placed to [facility] called and stated she is way over due for an appointment but thought she probably needed labs drawn. She would like to go Monday to get them done. If November could call her and let her know they are in, She will go. She states she is almost out of several medications. documented in this encounter [facility] 01-30-2025 Telephone encount er Note She also needed Thyroid Labs ordered. Thank you. [facility] 01-30-2025 Telephone encount er Note Orders placed to [facility] 01-30-2025 Telephone encount er Note Reema called and stated she is way over due for an appointment but thought she probably needed labs drawn. She would like to go Monday to get them done. If November could call her and let her know they are in, She will go. She states she is almost out of several medications. [facility] Evaluation note Diagnosis Post menopausal syndrome Asymptomatic postmenopausal status (age-related) (natural) [facility] Post menopausal syndrome Asymptomatic postmenopausal status (age-related) (natural) [facility] Diagnosis Post menopausal syndrome Asymptomatic postmenopausal status (age-related) (natural) [facility] Diagnosis Mixed hyperlipidemia- Primary Mixed hyperlipidemia Screening for diabetes mellitus Medication monitoring encounter Encounter for therapeutic drug monitoring Chronic fatigue syndrome Postsurgical hypothyroidism Postsurgical hypothyroidism [facility] Diagnosis Mild intermittent asthma with acute exacerbation (HCC) [facility] Diagnosis Mixed hyperlipidemia Mixed hyperlipidemia Postsurgical hypothyroidism Postsurgical hypothyroidism Chronic fatigue Other malaise and fatigue Non morbid obesity due to excess calories documented in this encounter [facility]* Diagnosis Euthyroid sick syndrome- Primary Postsurgical hypothyroidism Postsurgical hypothyroidism Chronic fatigue Other malaise and fatigue Non morbid obesity due to excess calories Mild intermittent asthma with acute exacerbation (HCC) Mixed hyperlipidemia Mixed hyperlipidemia Post menopausal syndrome Asymptomatic postmenopausal status (age-related) (natural) documented in this encounter [facility]* Diagnosis Encounter for Medicare annual wellness exam- Primary Advance directive in chart Encounter for screening for other disorder Screening mammogram for breast cancer Screening for alcohol problem Screening for alcoholism Screening for osteoporosis Special screening for osteoporosis Menopause Symptomatic menopausal or female climacteric states History of hysterectomy Acquired absence of both cervix and uterus Non morbid obesity due to excess calories Mild intermittent asthma without complication (HCC) documented in this encounter [facility] Healthcare Summary Purpose Family History No Family History Records FoundNo Family History Records FoundNo Family History Records Found Advance Directives No Advanced Directives Records FoundDocuments on File Type Date Recorded Patient Hr Director Expl anation Advance Directives and Living Will 10/05/2021 2021-09-27 [facility] Documents on File Type Date Recorded Patient Hr Director Expl anation Advance Directives and Living Will 10/05/2021 2021-09-27 [facility] Reason for Referral Specialty Diagnoses / Procedures Referred By Juan Luis da silva Referred To Contact Diagnoses Post menopausal syndrome Aram Banks MD [address] [place] [address] Referral ID Status Reason Start Date Expiration Date V isits Requested Visits Authorized [id number] Authorized 1 1 Additional Source Comments INFORMATION SOURCE (unrecogn ized section and content) DATE CREATED AUTHOR 10/12/2021 [facility] DATE CREATED AUTHOR AUTHOR'S ORGANIZ ATION 12/12/2022 [facility] DATE CREATED AUTHOR AUTHOR'S ORGANIZ ATION 03/12/2025 [facility] dical Specialists EPIC Reason for Visit (unrecogniz ed section and content) Reason Comments Med Refill Reason Onset Date Comments Med Refill 10/03/2023 Reason Comments Hypothyroidism Reason Comments Annual Exam Care Teams (unrecognized sec tion and content) 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 Relationship Specialty Start Date End Date Aram Banks MD [address] [place] [address] (Fax) PCP - General Family Medicine 01/30/23 Aram Banks MD [address] [place] [address] (Fax) PCP - [place] 01/19/23 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 Relationship Specialty Start Date End Date Aram Banks MD [address] [facility] [place] [address] (Fax) PCP - General Family Medicine 01/30/23 Aram Banks MD [address] [facility] [place] [address] (Fax) PCP - [place] 01/19/23 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 Relationship Specialty Start Date End Date Aram Banks MD [address] [place] [address] (Fax) PCP - General Family Medicine 01/30/23 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 Relationship Specialty Start Date End Date Aram Banks MD [address] [facility] [place] [address] (Fax) PCP - General Family Medicine 01/30/23 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 Relationship Specialty Start Date End Date Aram Banks MD [address] [place] [address] (Fax) PCP - General Family Medicine 01/30/23 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 Relationship Specialty Start Date End Date Aram Banks MD [address] [place] [address] (Fax) PCP - General Family Medicine 01/30/23 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 Relationship Specialty Start Date End Date Aram Banks MD [address] [place] [address] (Fax) PCP - General Family Medicine 01/30/23 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 Relationship Specialty Start Date End Date Aram Banks MD [address] [place] [address] (Fax) PCP - General Family Medicine 01/30/23 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 Relationship Specialty Start Date End Date Aram Banks MD [address] [place] [address] (Fax) PCP - General Family Medicine 01/30/23 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 Relationship Specialty Start Date End Date Aram Banks MD [address] [place] [address] (Fax) PCP - General Family Medicine 01/30/23 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 Relationship Specialty Start Date End Date Aram Banks MD [address] [place] [address] (Fax) PCP - General Family Medicine 01/30/23 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 Relationship Specialty Start Date End Date Aram Banks MD [address] [place] [address] (Fax) PCP - General Family Medicine 01/30/23 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 Relationship Specialty Start Date End Date Aram Banks MD [address] [address] PCP - General Family Medicine 01/30/23 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 Relationship Specialty Start Date End Date Aram Banks MD [address] [address] (Fax) PCP - General Family Medicine 01/30/23 FOR RECORDS PERTAINING TO PATIENTS WHO ARE OR HAVE BEEN ENROLLED IN A CHEMICAL DEPENDENCY/SUBSTANCEABUSE PROGRAM, SOME INFORMATION MAY BE OMITTED. This clinical summary was aggregated from multiple sources. Caution should be exercised in using it in the provision of clinical care. This summary normalizes information from multiple sources, and as a consequence, information in this document may materially change the coding, format and clinical context of patient data. In addition, data may be omitted in some cases. CLINICAL DECISIONS SHOULD BE BASED ON THE PRIMARY CLINICAL RECORDS. [employer] [facility]. provides no warranty or guarantee of the accuracy or completeness of information in this document.
== END 2025-03-17 09:37 | disposition home or self-care (01) ==
LOC: RAD 09:37
PROVIDERS: PCP Family Medicine; Visit Provider Family Medicine
DX: Z12.31 Encounter for screening mammogram for malignant neoplasm of breast (principal); Z13.820 Encounter for screening for osteoporosis; Z78.0 Asymptomatic menopausal state; Z80.52 Family history of malignant neoplasm of bladder
CPT/HCPCS: 77063; 77067; 77080